=== PATIENT | female | born 1985 | race Caucasian/White ===

== ENCOUNTER 2023-09-29 06:06 | Day surgery (SDC) | payer OTHER, SELFPAY ==
[2023-09-27 12:21] VITALS: BMI 19.5
[2023-09-29] VITALS (14 sets, daily range): BP systolic 95–128; BP diastolic 44–83; PULSE 58–94; RESP 10–21; TEMP 36.2–36.9; O2SAT 91–100; BMI 19.3
--- NOTE | 2023-09-29 | DI.RAD.S_ITS ---
PROCEDURE: XR LUMBAR SPINE 2-3V INDICATIONS: L5-S1 TLIF TECHNIQUE: 2 intraoperative fluoroscopic views of the lumbar spine were acquired. COMPARISON: None. FINDINGS: Intraoperative fluoroscopic images shows posterior fusion at L5-S1 level with surgical hardware in place. IMPRESSION: Fluoro guidance was provided intraoperatively for posterior fusion at L5-S1 level performed by ordering physician. Dictated by: Saurabh Leroy M.D. on 09/29/2023 at 14:25 Approved by: Saurabh Leroy M.D. on 09/29/2023 at 14:26
[2023-09-29] MEDS: LACTATED RINGERS 1,000 ML 42 ML IV (07:00)
--- NOTE | 2023-09-29 07:44 | PM.PREOP ---
Pre-operative Note Interval Note History & Physical reviewed/Exam performed by Physician: Yes Changes to H&P: No
[2023-09-29] MEDS: GABAPENTIN 600 MG TABLET PO (07:48)
[2023-09-29] MEDS: ACETAMINOPHEN 325 MG TABLET 975 MG PO (07:48)
[2023-09-29] MEDS: CEFAZOLIN 2 GM/100 ML PREMIX 100 ML IV ×2 (08:12→15:41)
--- NOTE | 2023-09-29 08:26 | SUR.OPER ---
Prone on spine table, head in foam head support, padded chest and pelvic supports, gel pad at knees, lower legs supported by pillows; nipples, genitalia and toes free of pressure, arms secured on foam padded arm boards at <90 degrees abduction. Tape over blanket at thigh secured to table.
[2023-09-29] MEDS: BUPIVACAINE LIPOSOME 266 MG/20 ML VIAL INJ (08:52)
[2023-09-29] MEDS: BUPIVACAINE 0.25% (PF) 60 ML, EPINEPHrine 0.15 MG INJ (08:52)
--- NOTE | 2023-09-29 10:20 | P.OP_ITS ---
Operative Date/Time/Diagnoses Date of procedure: 09/29/23 Time of procedure: 07:40 Pre-op diagnosis: 1. L5-S1 spondylolisthesis 2. L5-S1 bilateral foraminal stenosis with radiculopathy Post-op diagnosis: same Procedure & Clinicians Procedure: 1. L5-S1 Postero-lateral and posterior interbody fusion 2. L5-S1 interbody cage placement. 3. L5-S1 decompressive laminectomy with bilateral facetecomies 4. L5-S1 Posterior non-segmental instrumentation 5. Orla of bone marrow from iliac crest 6. Utilization of microsurgical technique and operating microscope Same procedure as scheduled: Yes Indications: Patient has been having chronic back pain and worsening lumbar radiculopathy. Patient has chronic L5-S1 spondylolisthesis progressing over time with congenital bilateral pars defect. Patient failed multiple conservative management with worsening back pain, leg weakness and numbness in her lower extremity. Patient has been having diffic ulty performing activity of daily living. After discussing risks benefits of treatment options, patient elected proceed with surgery. Surgeon: Enrrique Fuller Budget Accountant: Lavinia Keller Click Yes if Unassisted: No Anesthesia Type: General Operative Notes Closure Type: primary Specimen(s): none sent Prosthetic devices, grafts, tissues, transplants, or devices: Globus revolve screws, Rise cage Estimated Blood Loss (mL): 50 Blood products transfused: none Procedure in detail: Patient was seen in the preoperative area. Risks and benefits of the surgery was discussed with the patient. Informed consent was obtained from the patient and placed in the chart. Surgical site was marked. Patient was taken to the operative room. General anesthesia was administered. Prophylactic antibiotic was given to the patient less than 30 min before the incision was made. Patient was placed into a prone position on the Noel table. Patient's back was then prepped and draped in the sterile fashion. Time-out was performed at this time. Using AP and lateral C-arm imaging the interval between L5-S1 was identified and marked on patient's back. A 2 inch incision 2 in from midline was made on the left side first. The fascia was incised in line with skin incision. Globus MARS retractors was placed inside the incision and docked onto the L5 lamina. Using microsurgical technique and operating microscope, a L5 laminectomy and L5-S1 facetectomy was performed using a Kerrison rongeur. Patient was found have severe lateral recess and neural foramen stenosis which was fully decompressed after the laminectomy facetectomy. The laminectomy and facetectomy was performed in order to decompress patient's cauda equina as well as the nerve roots exiting at the L5-S1 level. More than 75% of the facets were removed during the process of decompression rendering L5-S1 level further unstable and required a fusion procedure at the same time. The disc space at L5-S1 was identified. And a total diskectomy was performed at L5-S1 level. The endplates were decorticated using a rasp and shaver. The total diskectomy and decortication was performed at L5-S1 level in order to to accomplish a L5-S1 fusion. The local bone from the laminectomy and facetectomy was saved for local bone grafting. After the total diskectomy and decortication was completed, Trifecta bone graft material was combined with local bone that was harvested earlier. At this time, a separate skin is incision was made over the iliac cr est. A Jamshidi needle was inserted into the iliac crest through a separate skin incision. 5 cc of bone marrow aspiration was obtained through the separate skin incision using a Jamshidi needle from the iliac crest. The bone marrow aspiration was combined with local bone and the Trifecta bone grafting material. The bone grafting material was placed into the L5-S1 interbody space along with a expandable cage. The cage was expanded to its maximum height using the torque limiting screwdriver. At this time a mirror image incision was made on the right side. The fascia was incised in line with the skin incision. Globus MARS retractor was inserted and docked onto the L5-S1 posterolateral gutter. Using the power drill, posterior- lateral decortication was performed at L5-S1 level until bleeding cortical bone was identified. The remaining bone grafting material was placed into the L5-S1 posterior lateral gutter he order to accomplish posterolateral fusion at the L5- S1 level. Using the double C-arm technique, pedicle screws were placed into the L5-S1 pedicles bilaterally. This was done by placing the Jamshidi needle into the pedicles, then placing the guidewires over the Jamshidi needle, and finally placing the cannulated screws over the guidewires bilaterally. After the pedicle screws were placed, 2 titanium rods was locked into the heads of the pedicle screws using locking caps and torque limiting screwdriver. Threaded reducers were used to reduce the patient's spondylolisthesis. Appropriate reduction was accomplished and maintain the use of the hardware placed. After all the hardware was placed, and confirmed with AP and lateral C-arm imaging, the wound was then irrigated with sterile normal saline and packed with Ray-Javier gauze for 3 min to accomplish hemostasis. After the gauze was removed the deep fascia was closed with #1 Vicryl suture. The subcutaneous layer was closed with 2-0 Vicryl. The skin was closed with 4-0 Monocryl sutures. Patient tolerated the procedure well. There were no complications. Complications: none Post-operative Condition: stable Disposition: PACU Plan for aftercare: admit to inpatient hospital
[2023-09-29] MEDS: hydrOXYzine 50 MG/ML INJ 25 MG IM (10:41)
[2023-09-29] MEDS: LORazepam 2 MG/ML INJ 0.5 MG IV ×2 (10:47→10:56)
[2023-09-29] MEDS: HYDROMORPHONE 1 MG INJ IV (10:51)
[2023-09-29] MEDS: OXYCODONE IR 5 MG TABLET PO (11:14)
[2023-09-29] MEDS: LACTATED RINGERS 1,000 ML 125 ML IV ×2 (12:11→21:05)
[2023-09-29] MEDS: ACETAMINOPHEN 325 MG TABLET 650 MG PO (14:09)
[2023-09-29] MEDS: OXYCODONE IR 10 MG TABLET PO ×4 (14:10→23:59)
--- NOTE | 2023-09-29 14:50 | PT.IIE ---
Current Diagnoses Spondylolisthesis, lumbosacral region (09/29/23) Spinal stenosis, lumbar region with neurogenic claudication (09/29/23) Surgery Performed Operation Date: 09/29/23 07:45 Actual Procedures p L5-S1 TLIF - Enrrique Fuller MD Surgical History (Last Updated 09/27/23 @ 13:07 by Marley Guzman, RN) History of hysterectomy Hx of breast augmentation Hx of tubal ligation Medical History (Last Updated 09/27/23 @ 13:07 by Marley Guzman RN) Anxiety Depression Easy bruisability PTSD (post-traumatic stress disorder) Sciatica Spinal stenosis Physical Therapy Inpatient Evaluation/Re-Eval M1 PT/OT-IP Prior Functional Status Start: 09/29/23 17:06 Freq: NEEDED Status: Active Protocol: Document 09/29/23 14:50 AB (Rec: 09/29/23 17:18 AB [id number]) Medical Review Prior Functional Status Medical History Reviewed Yes Communication able to make needs known Mobility and Gait pt stated that she was independent with all mobilities and ambulation without AD but occasionally uses a walking stick Activities of Daily Living and IADL's Per OT note: Pt able to ADl and IADL needs but had pain. Social History Household Members spouse,children Living Arrangements Mobile home Number of Floors (Floors) One Floor Number of Stairs To Enter/Railing? 4 steps with bilateral wide rails and can only hold on to 1 rail at a time. Home Environment Standard Height Toilet,Tub/ Shower Home Equipment Four Wheel Walker,Hand Held Shower Additional Social History Comment Pt has a folding walking stick . Pt's and 19 year old daughter to be able to assist her at home. M2 PT-IP Current Condition Start: 09/29/23 17:06 Freq: NEEDED Status: Active Protocol: Document 09/29/23 14:50 AB (Rec: 09/29/23 17:18 AB [id number]) Physical Therapy Current Condition Current Condition Evaluation Date 09/29/23 Treatment Diagnosis s/p L5S1 fusion; difficulty in walking Onset Date 09/29/23 M3 PT-IP Subjective Start: 09/29/23 17:06 Freq: NEEDED Status: Active Protocol: Document 09/29/23 14:50 AB (Rec: 09/29/23 17:18 AB [id number]) Subjective Physical Therapy Visit Type Type Initial Evaluation Visit Start Time 14:50 Visit Stop Time 15:30 Total Visit Minutes 40 Number of MANAGER EXCHANGE Visits 0 Physical Therapy Visit Comments Patient Comments agreeable to do PT Therapy Pain Assessment Pain When Pain Assessed At Rest Pain Present Pain Present Pain Reported Location back Intensity 9 Scale Used Numeric (0 - 10) Pain Management Techniques Distraction,Modification of Treatment,Re-positioning, Timing of Activity with Medications M4 PT-IP Mobility and Gait Start: 09/29/23 17:06 Freq: NEEDED Status: Active Protocol: Document 09/29/23 14:50 AB (Rec: 09/29/23 17:18 AB [id number]) PT-Bed Mobility Assessment Rolling Type of Rolling Log Rolling Level of Assist Standby Assistance Supine to Sit Supine to Sit Standby Assistance PT-Transfer Assessment Sit to and From Stand Sit to and from Stand Contact Guard Assistance,1 Person Assistance,Use of Upper Extremities Equipment Transfer Assistive Device Gait Belt,Front Wheeled Walker Orthotic/Prosthetic Devices or Brace: No Transfers Transfer Destination Chair Transfer Technique ambulated Transfer Ability Level of Assist Contact Guard Assistance,1 Person Assistance,Use of Upper Extremities Comments Mobility Comments pt supine ni bed. post-op folder provided and reviewed contents. educated pt regarding back precautions and log roll bed mobility. pt completed log roll supine to sit SBA. able to sit on EOB SBA. no c/o dizziness/ lightheadedness. completed sit to stand CGA and ambulated in room using FWW CGA ~ 40 ft . pt agreed to sit up on the chair. call light and table placed within reach. Left pt with OT and spouse in room. informed pt and spouse regarding caregiver training if needed tomorrow. pt and spouse agreed. spouse stated that he is going to stay overnight with pt and will be available anytime tomorrow. Gait Assessment Gait Gait Assistance Required: Contact Guard Assist Distance (Feet) 40 Able to Maintain Weight Bearing Status Yes During Gait Assistive Devices Assistive Device Gait Belt,Front Wheeled Walker Orthotic/Prosthetic Devices or Brace: No Gait Deviations General Gait Pattern Decreased Stride Length, Decreased Feet Clearance, Narrow Based Gait Factors Limiting Gait Function Factors Limiting Gait Function Decreased Activity Tolerance, Decreased Strength,Limited Range of Motion,Pain,Poor Balance,Poor Safety Awareness PT-Balance Assessment Sitting Balance and Reactions Static Sitting Balance Ability Good Dynamic Sitting Balance Ability Good Standing Balance and Reactions Static Standing Balance Ability Fair Dynamic Standing Balance Ability Fair Device Used FWW M5 PT-IP Objective Assessments Start: 09/29/23 17:06 Freq: NEEDED Status: Active Protocol: Document 09/29/23 14:50 AB (Rec: 09/29/23 17:18 AB [id number]) Orientation Orientation/Cognition Level of Alertness Alert Orientation Name,Place,Situation Language Function Ability No Deficits Noted Safety Awareness Decreased Safety Awareness Memory Description No Deficits Noted Gross Range of Motion Lower Extremity ROM Assessment Within Functional Limits Strength Lower Extremity Strength Assessment Right Impaired Hip 3+/5 Knee 4-/5 Comments Strength Comments LLE: 4/5 Sensation Assessment Sensation Gross Sensation WNL Muscle Tone Muscle Tone WNL Yes M6 PT-IP Treatment Start: 09/29/23 17:06 Freq: NEEDED Status: Active Protocol: Document 09/29/23 14:50 AB (Rec: 09/29/23 17:18 AB [id number]) Physical Therapy Treatment Education Education Provided Precautions,Weight Bearing Status,Post-Op Packet,Safety M7 PT-IP Assessment and Plan Start: 09/29/23 17:06 Freq: NEEDED Status: Active Protocol: Document 09/29/23 14:50 AB (Rec: 09/29/23 17:18 AB [email or web address]) PT Summary Assessment and Plan Potential Rehabilitation Potential Fair Status of Condition at Evaluation Evolving Summary Impairments Pain,ROM,Strength,Balance, Coordination,Sensation,Tone, Cognition,Bed Mobility, Transfers,Gait,Activity Tolerance Assessment Summary pt is a 37 y/o F who underwent L5-S1 fusion. pt has back precautions. pt requiring SBA to CGA with mobility using FWW. pt plans to go home and spouse mainly will be assisting pt but also has her 18 y/o daughter to assist if needed. caregiver training will be conducted when appropriate. pt also will complete stair climbing prior to d/c as pt has 4 steps to enter the house. will continue to assess progress for safe d /c. Goals Bed Mobility Goal Independent Transfer Goal Independent,Front Wheeled Walker,Four Wheeled Walker Gait Goal Independent,Front Wheel Walker ,Four Wheel Walker Gait Distance 250 Other Goals improve transfers and ambulation using LRAD/without AD mod I ~ 300 ft up/down 4 steps 1 rail SBA Days to Meet Goals 5 Frequency of Treatment Frequency Of Treatment Twice a Day Treatment Plan Physical Therapy Treatment Plan Bed Mobility Training,Transfer Training,Gait Training, Therapeutic Exercise,Balance Retraining,Post Op Education, Discharge Planning,Hot or Cold Pack,Neuromuscular Re-ed, Coordination Retraining,Manual Therapy Precautions Lumbar Precautions Log Roll,No Twisting,Limit Bending,Lifting Restriction of 10 lbs,Gait Belt above Incisional Area Recommendations To Nursing Amount of Assist Needed 1 Person Assist Discharge Recommendations PT Discharge Recommendations Home with Assistance Equipment Needed for Home Before FWW if not safe with a 4WW Discharge Transportation Needs at Discharge Private Vehicle
--- NOTE | 2023-09-29 15:00 | OT.IP.EVAL ---
Current Diagnoses Spondylolisthesis, lumbosacral region (09/29/23) Spinal stenosis, lumbar region with neurogenic claudication (09/29/23) Surgery Performed Operation Date: 09/29/23 07:45 Actual Procedures p L5-S1 TLIF - Enrrique Fuller MD Past Medical History (Last Updated 09/27/23 @ 13:07 by Marley Guzman, RN) Anxiety Depression Easy bruisability PTSD (post-traumatic stress disorder) Sciatica Spinal stenosis Surgical History (Last Updated 09/27/23 @ 13:07 by Marley Guzman RN) History of hysterectomy Hx of breast augmentation Hx of tubal ligation Occupational Therapy Inpatient Evaluation/Re-Eval M1 PT/OT-IP Prior Functional Status Start: 09/29/23 15:36 Freq: NEEDED Status: Active Protocol: Document 09/29/23 15:37 [facility] (Rec: 09/29/23 15:51 [facility] [id number]) Medical Review Prior Functional Status Communication Independent Mobility and Gait Pt states would us a folding walking stick as needed. Activities of Daily Living and IADL's Pt able to ADl and IADL needs but had pain. Social History Household Members spouse,children Living Arrangements Mobile home Number of Floors (Floors) One Floor Number of Stairs To Enter/Railing? 4 steps with bilateral wide rails. Home Environment Standard Height Toilet,Tub/ Shower Additional Social History Comment Pt has a folding walking stick . Pt's and 19 year old daughter to be able to assist her at home. M2 OT-IP Current Condition Start: 09/29/23 15:36 Freq: Status: Active Protocol: Document 09/29/23 15:37 [facility] (Rec: 09/29/23 15:51 [facility] [id number]) Occupational Therapy Current Condition Current Condition Evaluation Date 09/29/23 Treatment Diagnosis S/P L5-S1 TLIF Diagnosis Onset Date 09/29/23 Post Operative Precautions Lumbar Precautions Log Roll,No Twisting,Limit Bending,Lifting Restriction of 10 lbs,Gait Belt above Incisional Area M3 OT- IP Subjective and Pain Start: 09/29/23 15:36 Freq: Status: Active Protocol: Document 09/29/23 15:37 [facility] (Rec: 09/29/23 15:51 [facility] [id number]) OT- Subjective Occupational Therapy Visit Type Type Initial Evaluation Visit Start Time 15:00 Visit Stop Time 15:37 Total Visit Minutes 37 Occupational Therapy Visit Comments Patient Comments Pt agreed to get up. Pt's present in the room. Patient/Caregiver Goals To go home. OT Pain Assessment Pain When Pain Assessed At Rest Pain Present Pain Present Pain Reported Location back Intensity 9 Scale Used Numeric (0 - 10) M4 OT- IP ADL's Start: 09/29/23 15:36 Freq: Status: Active Protocol: Document 09/29/23 15:37 [facility] (Rec: 09/29/23 15:51 [facility] [id number]) OT [id number] Comments OT Self-Feeding Comments Not at meal time. OT ADL-Grooming Comments OT Grooming Comments Not performed. OT ADL-Oral Care Comments Oral Care Comments Not performed. OT ADL-Dressing Comments OT Dressing Comments At this time pt will need assist otherwise use of LB dressing equipment to assist her. OT ADL-Toileting Comments OT Toileting Comments Pt used the bathroom earlier per nursing aid. Educated to stand and wipe will be easier to follow her back precautions at this time. OT ADL-Bathing Comments OT Bathing Comments Not at this time. Pt will benefit from a shower chair or tub bench at home to use. M5 OT- IP IADL's Start: 09/29/23 15:36 Freq: Status: Active Protocol: Document 09/29/23 15:37 [facility] (Rec: 09/29/23 15:51 [facility] [id number]) OT-Instrumental Activities of Daily Living Deficits IADL Deficits Identified Deficits Home Safety Awareness Awareness of Need for Assistance at Home Good Awareness Ability to Problem Solve Emergency Able to Problem Solve Situations Meal Preparation Meal Preparation Caregiver Provides Assist Parking Analyst Parking Analyst Caregiver Provides Assist M6 OT- IP Functional Cognition Start: 09/29/23 15:36 Freq: Status: Active Protocol: Document 09/29/23 15:37 [facility] (Rec: 09/29/23 15:51 [facility] [id number]) Cognitive Factors Limiting Selfcare Function Cognitive Ability Level of Alertness Alert Patient Orientation Name,Place,Situation Attention Span Ability Capable of Focused Attention, Capable of Sustained Attention Ability to Follow Commands Able to Follow One Step Commands Safety Awareness Decreased Recall of Precautions Cognitive Comments Cognitive Assessment Comments Pt needing cues to recall her back precautions and to keep her legs for crossing at this time. Pt is a little groggy from just having surgery this morning. OT- Vision and Hearing OT- Hearing Assessment OT- Hearing Assessment WFL OT- Vision Assessment Visual Acuity Glasses All The Time Visual Attentiveness WFL Occular Pursuits WFL M7 OT- IP Mobility and Balance Start: 09/29/23 15:36 Freq: Status: Active Protocol: Document 09/29/23 15:37 [facility] (Rec: 09/29/23 15:51 [facility] [id number]) OT- Bed Mobility Assessment Rolling Level of Assistance Contact Guard Assistance Supine to Sit Supine to Sit Assist Contact Guard Assistance Sit to Supine Sit to Supine Assist Standby Assistance Scooting Scooting to Edge of Bed Contact Guard Assistance OT-Transfer Assessment Sit to and From Stand Sit to and from Stand Contact Guard Assistance Transfers Transfer Ability Contact Guard Assistance Technique Transfer Destination Bed,Chair Transfer Technique Stand Step Pivot Devices Transfer Assistive Devices Gait Belt,Front Wheeled Walker Comments Mobility Comments Pt CGA to help push up from side lying and while up on her feet with the FWW. OT- Balance Assessment Sitting Balance and Reactions Static Sitting Balance Ability Good Dynamic Sitting Balance Ability Fair Standing Balance and Reactions Static Standing Balance Ability Good Dynamic Standing Balance Ability Fair M9 OT- IP Assessment and Plan Start: 09/29/23 15:36 Freq: Status: Active Protocol: Document 09/29/23 15:37 [facility] (Rec: 09/29/23 15:51 [facility] [id number]) OT Summary Assessment and Plan Potential Rehabilitation Potential Excellent Analytic Complexity at Evaluation Low Summary OT Impairments Pain,Balance,Functional Mobility,Grooming,Dressing, Toileting,Bathing,Toilet Transfers,Shower Transfers, Activity Tolerance Progress Towards Goals Progressing Toward Goals,Slow Progress due to Pain Assessment Summary Pt low complexity and main barriers are pain and steps. Pt has a supportive and daughter to assist her when able to go home when medically stable. Pt would benefit from LB dressing equipment and shower chair versus tub bench at home. Goals Grooming Goal Independent Dressing Goal Minimal Assistance Toileting Goal Independent Bathing Goal Standby Assistance Toilet Transfer Goal Independent Shower Transfer Goal Contact Guard Assistance Days to Meet Goals 2 Frequency of Treatment Frequency Of Treatment Once a Day Treatment Plan OT Treatment Plan ADL Training,Functional Mobility,Patient/Family Education,Discharge Planning Discharge Recommendations OT Discharge Recommendations Home with Assistance Home Equipment Needs Shower chair versus tub bench, LB dressing equipment Transportation Needs at Discharge Private Vehicle
[2023-09-29] MEDS: HYDROMORPHONE 0.5 MG INJ IV (15:41)
[2023-09-29] MEDS: SENNOSIDES 8.6 MG TABLET 17.2 MG PO (21:05)
[2023-09-29] MEDS: DOCUSATE 100 MG CAPSULE PO (21:05)
[2023-09-29] MEDS: hydrOXYzine pamoate 25 MG CAPSULE PO (21:09)
[2023-09-30] MEDS: CEFAZOLIN 2 GM/100 ML PREMIX 100 ML IV
[2023-09-30 01:00] VITALS: BP 105/64; PULSE 54; RESP 17; O2SAT 100
[2023-09-30] MEDS: ACETAMINOPHEN 325 MG TABLET 650 MG PO ×2 (03:49→09:59)
[2023-09-30] MEDS: hydrOXYzine pamoate 25 MG CAPSULE PO (03:50)
[2023-09-30] MEDS: OXYCODONE IR 10 MG TABLET PO ×3 (03:50→09:58)
[2023-09-30] MEDS: HYDROMORPHONE 0.5 MG INJ IV (04:24)
[2023-09-30] MEDS: LACTATED RINGERS 1,000 ML 125 ML IV (05:31)
--- NOTE | 2023-09-30 07:49 | P.DS_ITS ---
History of Present Illness History of Present Illness Date Patient Seen: 09/30/23 Time Patient Seen: 07:49 Chief complaint: Back pain Narrative: Patient's pain is [id number]-lugcedyn. Denies fever or chills. No nausea or vomiting. Patient has assistance at home. Patient has been out of bed walking in room into the restroom. Discharge Providers Provider Discharge Date: 09/30/23 Consults: 09/29/23 11:32 Consult to Occupational Therapy Evaluate & Treat Comment: Physician Instructions: Evaluate and treat Consult to Physical Therapy Evaluate & Treat Comment: Physician Instructions: Evaluate and Treat 09/29/23 13:14 Consult to Dietitian, Adult Routine Comment: patient states she is trying to gain weight. Reason For Exam: non intentional weight loose 35+ pounds. Discharge provider: Seymour Morrow PA-C Summary Hospital Course Discharge Diagnosis: 1. L5-S1 spondylolisthesis 2. L5-S1 bilateral foraminal stenosis with radiculopathy Hospital Course: 1. L5-S1 Postero-lateral and posterior interbody fusion 2. L5-S1 interbody cage placement. 3. L5-S1 decompressive laminectomy with bilateral facetecomies 4. L5-S1 Posterior non-segmental instrumentation 5. [place] of bone marrow from iliac crest 6. Utilization of microsurgical technique and operating microscope Same procedure as scheduled: Yes Indications: Patient has been having chronic back pain and worsening lumbar radiculopathy. Patient has chronic L5-S1 spondylolisthesis progressing over time with congenital bilateral pars defect. Patient failed multiple conservative management with worsening back pain, leg weakness and numbness in her lower extremity. Patient has been having difficulty performing activity of daily living. After discussing risks benefits of treatment options, patient elected proceed with surgery. Surgeon: Enrrique Fuller Manager Business Continuity: Lavinia Keller Click Yes if Unassisted: No Anesthesia Type: General Operative Notes Closure Type: primary Specimen(s): none sent Prosthetic devices, grafts, tissues, transplants, or devices: Globus revolve screws, Rise cage Estimated Blood Loss (mL): 50 Blood products transfused: none Patient admitted to the hospital for the above-mentioned procedure. Patient consented to the same. Patient underwent lumbar fusion September 29, 2023. Patient back in her room recovering well as in stable condition. Patient will be discharged home today after physical therapy if safe for home environment Exam Vital Signs (past 8 hours): - 09/30/23 01:00 Pulse Rate 54 L Respiratory Rate 17 Blood Pressure 105/64 Pulse Oximetry 100 Oxygen Flow Rate 0 Oxygen Delivery Method Nasal Cannula Oxygen Flow Rate 0 Narrative Exam Narrative: Pleasant 37-year-old female resting comfortably in bed no apparent distress. Motor functions intact bilateral lower extremities. Sensation grossly intact to light touch bilateral lower extremities. Const General: cooperative and comfortable Resp Effort & Inspection: normal respiratory effort and able to speak in complete sentences PFSH Medical History (Updated 09/27/23 @ 13:07 by Marley Gumzan RN) Depression Anxiety PTSD (post-traumatic stress disorder) Easy bruisability Sciatica Spinal stenosis Surgical History (Updated 09/27/23 @ 13:07 by Marley Guzman RN) Hx of breast augmentation Hx of tubal ligation History of hysterectomy Social History household members: spouse and children Smoking Status: Former smoker alcohol intake: current Discharge Assessment & Plan Assessment and Plan Assessment: Patient progressing as expected status post L5-S1 fusion Plan of Treatment: Mobilize with physical therapy, limit bending, twisting, lifting Multimodal pain management Follow up in Orthopedic Clinic 2 weeks as scheduled Discharge home today after physical therapy if safe for home environment Discharge Plan Discharge orders & Medications Discharge Orders: Discharge (Order); Ordered 09/30/23 Ordered By: Seymour Morrow Prescriptions: New acetaminophen 325 mg Tablet 650 mg PO Q6H PRN (Reason: Fever/Mild Pain (1-3)) Qty: 60 0RF docusate sodium 100 mg Capsule 100 mg PO BID Qty: 20 0RF hydroxyzine pamoate 25 mg Capsule 25 mg PO Q4HR PRN (Reason: Nausea And Vomiting) Qty: 20 0RF oxycodone 10 mg Tablet 10 mg PO Q3H PRN (Reason: Pain, Severe (7-10)) Qty: 40 0RF Discontinued ibuprofen 800 mg Tablet 800 mg PO Q6H Follow up/Referrals: Enrrique Fuller MD [Physician] - As previously scheduled (Follow up with Dr Fuller on 10/19/2023 @ 3:30 pm at [facility] office in [place].) Diet/Activity/Treatments Diet: Diet as Tolerated Activity: No deep bending or twisting at the waist. No lifting more than 10 pounds. Cold/Heat Therapy: Heating pad to low back as needed for pain. Skin/Wound/Dressing Care Report to your healthcare provider any signs of infection, such as:: chills, fever, night sweats, unusual drainage and unusual redness Dressing: May shower. Keep dressing as dry as possible. If dressing becomes wet or dirty, may remove and replace with clean, dry gauze. No bathing or otherwise soaking incisions. Do not apply any creams, lotions, or ointments to incisions. Visit Report/Discharge Packet Instructions: DI for Prescription Opioid Use, DI for Transforaminal Lumbar Interbody Fusion Stand Alone Forms: Patient Portal/API, Surgery Discharge Discharge Data Attending Provider: Enrrique Fulelr
[2023-09-30 08:42] VITALS: BP 108/62; PULSE 69; RESP 16; TEMP 36.2; O2SAT 98
[2023-09-30] MEDS: MAGNESIUM HYDROXIDE 30 ML UDC PO (08:48)
[2023-09-30] MEDS: DOCUSATE 100 MG CAPSULE PO (08:48)
--- NOTE | 2023-09-30 08:58 | PT.IPTN ---
Current Diagnoses Spondylolisthesis, lumbosacral region (09/29/23) Spinal stenosis, lumbar region with neurogenic claudication (09/29/23) Surgery Performed Operation Date: 09/29/23 07:45 Actual Procedures p L5-S1 TLIF - Enrrique Fuller MD Physical Therapy Treatment Note M2 PT-IP Current Condition Start: 09/29/23 17:06 Freq: NEEDED Status: Active Protocol: Document 09/29/23 14:50 AB (Rec: 09/29/23 17:18 AB [id number]) Physical Therapy Current Condition Current Condition Evaluation Date 09/29/23 Treatment Diagnosis s/p L5S1 fusion; difficulty in walking Onset Date 09/29/23 M3 PT-IP Subjective Start: 09/29/23 17:06 Freq: NEEDED Status: Active Protocol: Document 09/30/23 09:22 TS (Rec: 09/30/23 09:38 TS [id number]) Subjective Physical Therapy Visit Type Type Treatment Note Visit Start Time 08:58 Visit Stop Time 09:21 Total Visit Minutes 23 Notes Spouse in room Number of EDUCATION COUNSELOR Visits 1 Physical Therapy Visit Comments Patient Comments Pt found resting in bed, reports pain is 4/10, is agreeable to PT. Therapy Pain Assessment Pain When Pain Assessed At Rest Pain Present Pain Present Pain Reported Location back Intensity 4 Scale Used Numeric (0 - 10) Description With Movement Pain Behaviors Facial Grimacing Pain Management Techniques Distraction,Modification of Treatment,Re-positioning, Timing of Activity with Medications M4 PT-IP Mobility and Gait Start: 09/29/23 17:06 Freq: NEEDED Status: Active Protocol: Document 09/30/23 09:22 TS (Rec: 09/30/23 09:38 TS [id number]) PT-Bed Mobility Assessment Rolling Type of Rolling Log Rolling Level of Assist Standby Assistance Supine to Sit Supine to Sit Standby Assistance Scooting Scooting to Edge of Bed Standby Assistance PT-Transfer Assessment Sit to and From Stand Sit to and from Stand Standby Assistance,Use of Upper Extremities Equipment Transfer Assistive Device Gait Belt,Front Wheeled Walker Orthotic/Prosthetic Devices or Brace: No Comments Mobility Comments Pt found resting in bed, recalls 3/3 spinal precautions prior to mobility. Supine to sit SBA with HOB elevated and use of BUE support. She performed sit to stand with FWW, demonstrates good standing balance. She ambulated ~200' SBA with FWW and step thru gait. She performed stairs x3 with single rail step to step and step over step. Pt ambulated back to room, sat in chair. Pt again was educated on spinal precautions and the importance of continuing gait at home. Pt was left in chair with spouse, RN notified. Gait Assessment Gait Gait Assistance Required: Standby Assistance Distance (Feet) 200 Able to Maintain Weight Bearing Status Yes During Gait Assistive Devices Assistive Device Gait Belt,Front Wheeled Walker Orthotic/Prosthetic Devices or Brace: No Gait Deviations General Gait Pattern Decreased Stride Length, Decreased Feet Clearance, Narrow Based Gait Factors Limiting Gait Function Factors Limiting Gait Function Decreased Activity Tolerance, Decreased Strength,Limited Range of Motion,Pain,Poor Balance,Poor Safety Awareness Comments Gait Comments See mobility comments. Stair Climbing Assessment Evaluation Level of Assist On Stairs Standby Assistance Devices Stair Climbing Assistive Devices Left Railing,Right Railing Technique/Endurance Stair Climbing Direction Ascend and Descend Stair Climbing Technique Step Over Step,Step to Step Number of Steps Climbed 3 Comments Stair Climbing Comments See mobility comments PT-Balance Assessment Sitting Balance and Reactions Static Sitting Balance Ability Good Dynamic Sitting Balance Ability Good Standing Balance and Reactions Static Standing Balance Ability Good Dynamic Standing Balance Ability Good Device Used FWW M5 PT-IP Objective Assessments Start: 09/29/23 17:06 Freq: NEEDED Status: Active Protocol: Document 09/29/23 14:50 AB (Rec: 09/29/23 17:18 AB [id number]) Orientation Orientation/Cognition Level of Alertness Alert Orientation Name,Place,Situation Language Function Ability No Deficits Noted Safety Awareness Decreased Safety Awareness Memory Description No Deficits Noted Gross Range of Motion Lower Extremity ROM Assessment Within Functional Limits Strength Lower Extremity Strength Assessment Right Impaired Hip 3+/5 Knee 4-/5 Comments Strength Comments LLE: 4/5 Sensation Assessment Sensation Gross Sensation WNL Muscle Tone Muscle Tone WNL Yes M6 PT-IP Treatment Start: 09/29/23 17:06 Freq: NEEDED Status: Active Protocol: Document 09/30/23 09:22 TS (Rec: 09/30/23 09:38 TS [id number]) Physical Therapy Treatment Education Education Provided Precautions,Weight Bearing Status,Post-Op Packet,Safety M7 PT-IP Assessment and Plan Start: 09/29/23 17:06 Freq: NEEDED Status: Active Protocol: Document 09/30/23 09:22 TS (Rec: 09/30/23 09:38 TS [id number]) PT Summary Assessment and Plan Potential Rehabilitation Potential Good Summary Impairments Pain,ROM,Strength,Balance, Coordination,Sensation,Tone, Cognition,Bed Mobility, Transfers,Gait,Activity Tolerance Progress Towards Goals Progressing Toward Goals Assessment Summary David is making good progress with her mobility. She is SBA for all bed mobility and demonstrates good awareness of her spinal precautions, recalled 01/01. She progressed her ambulation to ~200'SBA with FWW. She progressed to stairs x3 SBA with single rail, had no buckling or LOB. PT is recommending pt return home with assist from family. Goals Bed Mobility Goal Independent Transfer Goal Independent,Front Wheeled Walker,Four Wheeled Walker Gait Goal Independent,Front Wheel Walker ,Four Wheel Walker Gait Distance 250 Other Goals improve transfers and ambulation using LRAD/without AD mod I ~ 300 ft up/down 4 steps 1 rail SBA Days to Meet Goals 5 Frequency of Treatment Frequency Of Treatment Twice a Day Treatment Plan Physical Therapy Treatment Plan Bed Mobility Training,Transfer Training,Gait Training, Therapeutic Exercise,Balance Retraining,Post Op Education, Discharge Planning,Hot or Cold Pack,Neuromuscular Re-ed, Coordination Retraining,Manual Therapy Precautions Lumbar Precautions Log Roll,No Twisting,Limit Bending,Lifting Restriction of 10 lbs,Gait Belt above Incisional Area Recommendations To Nursing Amount of Assist Needed 1 Person Assist Discharge Recommendations PT Discharge Recommendations Home with Assistance Transportation Needs at Discharge Private Vehicle
[2023-09-30] MEDS: polyethylene glycoL 3350 17 GM POWD.PACK PO (09:59)
--- NOTE | 2023-09-30 10:05 | OT.IP.TRT ---
Current Diagnoses Spondylolisthesis, lumbosacral region (09/29/23) Spinal stenosis, lumbar region with neurogenic claudication (09/29/23) Surgery Performed Operation Date: 09/29/23 07:45 Actual Procedures p L5-S1 TLIF - Enrrique Fuller MD Occupational Therapy Treatment Note M2 OT-IP Current Condition Start: 09/29/23 15:36 Freq: Status: Discharge Protocol: Document 09/29/23 15:37 [facility] (Rec: 09/29/23 15:51 [facility] [id number]) Occupational Therapy Current Condition Current Condition Evaluation Date 09/29/23 Treatment Diagnosis S/P L5-S1 TLIF Diagnosis Onset Date 09/29/23 Post Operative Precautions Lumbar Precautions Log Roll,No Twisting,Limit Bending,Lifting Restriction of 10 lbs,Gait Belt above Incisional Area M3 OT- IP Subjective and Pain Start: 09/29/23 15:36 Freq: Status: Discharge Protocol: Document 09/30/23 11:06 [facility] (Rec: 09/30/23 11:21 [facility] [id number]) OT- Subjective Occupational Therapy Visit Type Type Treatment Note Visit Start Time 10:05 Visit Stop Time 10:17 Total Visit Minutes 12 Occupational Therapy Visit Comments Patient Comments Pt ready to go home and able to go over OT needs with pt and her as pt not remembering anything that was said from yesterday. Patient/Caregiver Goals TO go home. OT Pain Assessment Pain When Pain Assessed During Mobility Pain Present Pain Present Pain Reported M4 OT- IP ADL's Start: 09/29/23 15:36 Freq: Status: Discharge Protocol: Document 09/30/23 11:06 [facility] (Rec: 09/30/23 11:21 [facility] [id number]) OT [id number] General Evaluation Self-Feeding Ability Independent OT ADL-Grooming General Evaluation Grooming Ability Independent OT ADL-Oral Care Comments Oral Care Comments Educated pt to best hinge at her hips to spit into the sink or sip into a cup to best follow her back precaution. OT ADL-Dressing Comments OT Dressing Comments Pt's able to order LB dressing equipment for the pt to use. OT ADL-Bathing Comments OT Bathing Comments Pt's to order and get a shower chair or tub bench for her and to assist her at home. M5 OT- IP IADL's Start: 09/29/23 15:36 Freq: Status: Discharge Protocol: Document 09/29/23 15:37 [facility] (Rec: 09/29/23 15:51 [facility] [id number]) OT-Instrumental Activities of Daily Living Deficits IADL Deficits Identified Deficits Home Safety Awareness Awareness of Need for Assistance at Home Good Awareness Ability to Problem Solve Emergency Able to Problem Solve Situations Meal Preparation Meal Preparation Caregiver Provides Assist Nut Former Nut Former Caregiver Provides Assist M6 OT- IP Functional Cognition Start: 09/29/23 15:36 Freq: Status: Discharge Protocol: Document 09/30/23 11:06 [facility] (Rec: 09/30/23 11:21 [facility] [id number]) Cognitive Factors Limiting Selfcare Function Cognitive Comments Cognitive Assessment Comments Pt still needing reminders from her of the back precautions not to cross her legs. Pt able to state her back precautions. Pt much more alert today. M9 OT- IP Assessment and Plan Start: 09/29/23 15:36 Freq: Status: Discharge Protocol: Document 09/30/23 11:06 [facility] (Rec: 09/30/23 11:21 [facility] [id number]) OT Summary Assessment and Plan Potential Rehabilitation Potential Excellent Analytic Complexity at Evaluation Low Summary OT Impairments Pain,Balance,Functional Mobility,Grooming,Dressing, Toileting,Bathing,Toilet Transfers,Shower Transfers, Activity Tolerance Progress Towards Goals Progressing Toward Goals Assessment Summary Pt low complexity and doing well, much more alert today . Pt did not remember suggestions for training for yesterday and able to go over all OT needs and suggestions with pt. Pt to go home with her supportive . Frequency of Treatment Frequency Of Treatment Once a Day Discharge Recommendations OT Discharge Recommendations Home with Assistance Home Equipment Needs Shower chair versus tub bench, LB dressing equipment Transportation Needs at Discharge Private Vehicle
--- NOTE | 2023-09-30 12:48 | CM.DANOTE ---
DCP: Case received, EMR reviewed and met with patient. Introduced self and role. Was able to obtain information regarding Patient's baseline as well as her current living situation. DCP assessment with information currently available. Patient: Is a 37 yr old female arrived at hospital via private vehicle to the care of the Orthopedic team. PCP: Currently looking for Provider in [facility] Payor: Lalo Pryor. Pt. came to the hospital for a planned Orthopedic procedure L5 - S1 Spondylolisthesis. Met with pt who was pleasant and A x O, confirmed current address and lives with family. Spouse to assist. Pt indicated 4 steps but does not forsee any difficulties ambulating. Pt.w ill be working with PT again prior to DC. Since patient stated that she had no provider, did offer resources for Providers at but Pt stated that she will seek these out on her own. Plan: Pt. has D/C order for home today pending working with PT. Pt will F/U with Orthopedic Appt. No further needs. Aleisha YEN, mortgage protection sales Planning/Care Management CM Discharge Assessment Start: 09/30/23 12:41 Freq: Status: Active Protocol: Document 09/30/23 12:41 NR (Rec: 09/30/23 12:47 NR [id number]) Discharge Planning Assessment Assigned [employer] Consultant Aleisha YEN hardwood floor finisher Advance Directives? No History Provided By Patient,Medical Record Has Patient been admitted in last 30 No days? Prior Living Arrangements Mobile home Household Members spouse,children Type of transporation used prior to Drives own vehicle admit Independent with ADL's Yes Is patient alert and oriented? Yes Barriers to Discharge No Discharge Plan Home Transportation Arrangement Spouse to Transport Referrals Initiated None needed Whiteboard Updated in Patient Room with Yes name and ext. # of [employer] Consultant Review Status In Process Next Review Type Continued Stay Review Pre-Anesthesia Assessment Start: 09/27/23 12:21 Freq: Status: Discharge Protocol: Document 09/27/23 12:21 CAB (Rec: 09/27/23 13:17 CAB [id number]) Pre-Anesthesia Assessment Patient Information Reviewed Via Phone Assessment Assessment Completed With Patient Diagnostic Results BMP/CMP,CBC Comment Outside labs scanned Primary Care Provider N/A Seen Specialist in Last 12 Months Yes Specialist Seen Orthopedist Primary Language Hebrew Drug Coordinator Required No Height 157.48 cm Weight 48.534 kg Body Mass Index (BMI) 19.5 Hearing Ability Normal Visual Assist Glasses Dentition Type Teeth, Natural Present,Teeth, Missing Barriers to Learning None Hx Anesthesia Reactions No Hx Family Anesthesia Reaction Yes: My dad had issues with coming out of anesthesia Hx Malignant Hyperthermia No Hx Blood Transfusions No Anesthesia Review Requested No Belt Lacer No alcohol intake former Smoking Status Former smoker how long ago did patient quit smoking Quit 2016 Substance Use Type marijuana Comment Pt advised not to smoke marijuana 24 hours prior Pain Present Pain Reported Musculoskeletal Symptoms Abnormal Gait,Back Pain, Difficulty Walking,Radiating Pain into Limb History of Falling (Recent or History of Yes ) Patient is completely paralyzed or No completely immobile Mental Status Oriented to own ability Is patient on oxygen? No Does patient have CRAMER/SOB No Hx Sleep Apnea No Currently Taking a Beta Rama No Hx Chest Pain No Hx SOB No Hx Syncope or Dizziness No Anti-Coagulant Therapy No Has a Photoflash Powder Mixer No Cardiac Testing No Hx Pacemaker/ICD No Pacemaker Rep Required? No Cardiac Clearance Received Not Applicable Diet Type At Home Regular Dysphagia No Gastrointestinal Symptoms Constipation Chronic UTI No Urinary Catheter Present No Hx Urinary Self Catheterization No Diabetes No Patient No Lactating No Received a COVID vaccine? No Marital Status Lives With spouse,children Current Living Arrangements Mobile home Number of Stairs To Enter/Railing? 4 Support System Spouse Does the Patient Have Assistance After Yes Surgery Patient Discharge Plan Description Return Home Comment Pt advised overnight length of stay per surgeon Feels Safe in Current Environment Yes Been Physically Hurt or Threatened By a No Person in Current Environment Do you have thoughts of harming yourself None or others? Are you currently considering suicide? No Do you have a plan to hurt yourself or No Plan others? Do You Have Any Spiritual Beliefs That No May Affect Your HC Choices? Do You Have Any Cultural Practices That No May Affect Your HC Choices? Who Can We Speak to About Patient's Care Family, friends Identifying Code for Release of Patient Declines to issue Information Health Care Proxy/Next of Kin Luis Nishant ( ) Health Care Proxy Emergency Contact Name Luis HendricksonMali ( ) Emergency Contact Advance Directives? No Power of Precision Instrument Maker And Repairer No PAC Instructions Durable medical equipment, Medications to take/avoid, Nasal antibiotic,No ETOH/ petroleum product on skin DOS, NPO,Pre-surgical wash,Sensory aids,Sturdy shoes/comfortable clothes,Do not bring valuables and remove jewelry
== END 2023-09-30 10:37 | disposition home or self-care (01) ==
LOC: OR 06:12 → AC 06:12
PROVIDERS: Referring Provider Orthopaedic Surgery Orthopaedic Surgery of the Spine; Visit Provider Orthopaedic Surgery Orthopaedic Surgery of the Spine
PROC: (CPT 22633; principal; 2023-09-29 07:45)
DX: M43.17 Spondylolisthesis, lumbosacral region (principal); M48.07 Spinal stenosis, lumbosacral region; M54.17 Radiculopathy, lumbosacral region
CPT/HCPCS: 22633; 63052; 22853; 22840; 20939; 72100; 76000; 97116; 97162; 97165; 97530; 97535; C1713; C9290; J0171; J0330; J0690; J1170; J1200; J2060; J2250; J2405; J2704; J3010; J3410